=== PATIENT | female | born 1960 | race Caucasian/White ===

== ENCOUNTER 2016-10-16 08:30 | Inpatient (IN) | payer OTHER ==
[~2016-10-16] VITALS: Ht 152.4 cm; Wt 61.2 kg
--- NOTE | 2016-10-16 08:32 | NUR ---
AAOX3, CAME TO ER C/O CHEST PAIN RADIATES TO R ARM AND NECK, ALSO C/O N/V. TOOK SOME GASX AND ANTI-SPASM TO NO RELIEF. SKIN IS WARM AND DRY. RESP IS EVEN AND UNLABORED WITH NAD NOTED. EKG AT BS. AWAITING MD FOR EVAL.
--- NOTE | 2016-10-16 08:40 | NUR ---
AT BEDSIDE FOR EVAL
[2016-10-16] MEDS ORDERED: ONDANSETRON HCL/PF 4 MG/2 ML VIAL ONE (08:43)
[2016-10-16] MEDS ORDERED: IV NS 0.9% 1,000 ML ONE (08:43)
[2016-10-16] MEDS ORDERED: IV SET PRIMARY PUMP SET 1 EA INFUS.SET MC ONE (08:43)
[2016-10-16] MEDS ORDERED: HYDROMORPHONE 1 MG/1 ML DISP.SYRIN ONE (08:43)
--- NOTE | 2016-10-16 08:58 | NUR ---
RAC #18 IV ACCESS BLOOD SAMPLE COLLECTED SENT TO LAB
[2016-10-16 09:00] LABS: BASOPHILS % (AUTO) 0.6 % (0.0-2.0); EOSINOPHILS # (AUTO) 0.2 /CMM (0.0-0.7); EOSINOPHILS % (AUTO) 4.2 % (0.0-6.0); HEMATOCRIT 39 % (33-45); HEMOGLOBIN 13.2 g/dL (11.5-14.8); LYMPHOCYTES # (AUTO) 1.6 /CMM (0.8-4.8); LYMPHOCYTES % (AUTO) 32.8 % (20.0-44.0); MEAN CORPUSCULAR HEMOGLOBIN 30 PG (26.0-33.0); MEAN CORPUSCULAR HGB CONC 34 g/dl (31.0-36.0); MEAN CORPUSCULAR VOLUME 88 fL (82-100); MONOCYTES # (AUTO) 0.5 /CMM (0.1-1.30); MONOCYTES % (AUTO) 10.9 % (2.0-12.0); NEUTROPHILS # (AUTO) 2.5 /CMM (1.8-8.9); NEUTROPHILS % (AUTO) 51.5 % (43.0-81.0); PLATELET COUNT (AUTO) 248 /CMM (150-450); RDW COEFFICIENT OF VARIATION 12.5 (11.5-15.0); RED BLOOD CELL COUNT(AUTO) 4.45 MIL/uL (4.0-5.2); WHITE BLOOD COUNT (AUTO) 4.9 K/uL (4.3-11.0)
[2016-10-16] MEDS ORDERED: IV NS 0.9% 1,000 ML BAG IV ONE (09:00)
[2016-10-16] MEDS ORDERED: HYDROMORPHONE INJ 2 MG/ML DISP.SYRIN IV ONE (09:00)
[2016-10-16] MEDS ORDERED: ONDANSETRON HCL/PF 4 MG/2 ML VIAL IVP ONE (09:00)
[2016-10-16 09:20] LABS: INR 0.96 (0.87-1.13); PROTHROMBIN TIME 10.2 SECS (9.5-12.7)
[2016-10-16 09:29] LABS: ALANINE AMINOTRANSFERASE 43 U/L (12-78); ALKALINE PHOSPHATASE 83 U/L (46-116); ASPARTATE AMINOTRANSFERASE 27 U/L (15-37); BILIRUBIN,DIRECT 0.1 mg/dL (0.0-0.2); BILIRUBIN,TOTAL 0.6 mg/dL (0.2-1.0); CALCIUM, SERUM 9.1 mg/dL (8.5-10.1); CARBON DIOXIDE 28 mmol/L (21-32); CHLORIDE 102 mmol/L (98-107); GFR 57 mL/min (>60); GLUCOSE 159 mg/dL (74-106); LIPASE 221 U/L (73-393); POTASSIUM 3.9 mmol/L (3.5-5.1); SODIUM SERUM 140 mmol/L (136-145); TOTAL PROTEIN, SERUM 7.5 g/dL (6.4-8.2); UREA NITROGEN, BLOOD 14 mg/dL (7-18)
[2016-10-16 09:31] LABS: TROPONIN I < 0.017 ng/mL (0.00-0.056)
--- NOTE | 2016-10-16 10:00 | NUR ---
URINE SAMPLE SENT TO LAB
[2016-10-16 10:10] LABS: APPEARANCE,URINE SL CLOUDY (CLEAR); BILIRUBIN,URINE NEGATIVE (NEGATIVE); BLOOD, URINE NEGATIVE Ery/uL (NEGATIVE); COLOR,URINE YELLOW (YELLOW); KETONES,URINE TRACE (NEGATIVE); LEUKOCYTE ESTERASE ,URINE NEGATIVE (NEGATIVE); NITRITE, URINE NEGATIVE (NEGATIVE); PH,URINE 7.5 (5.0-8.0); PROTEIN,URINE NEGATIVE (NEGATIVE); UGLUCOSE NEGATIVE (NEGATIVE); UROBILINOGEN,URINE 0.2 EU/dL (0.2)
[2016-10-16 10:18] LABS: RBC,URINE NONE SEEN /HPF (0-2)
[2016-10-16 10:19] LABS: ADD URINE CULTURE NO; BACTERIA,URINE Few /HPF (None Seen); HYALINE CASTS, URINE Rare /LPF (None Seen); SQUAMOUS EPITHELIAL CELL,UR Moderate /HPF (None Seen); URINE AMORPHOUS PHOSPHATES Few /HPF (None Seen); WBC,URINE 0-2 /HPF (0-3)
--- NOTE | 2016-10-16 10:26 | NUR ---
[facility] P[facility]ED, DR PEDRO SWEET GOODS MACHINE OPERATOR [phone]
--- NOTE | 2016-10-16 10:41 | NUR ---
CLIENT SERVICES MANAGER AT BEDSIDE FOR EVAL
[2016-10-16] MEDS ORDERED: METOPROLOL TARTRATE INJ 5 MG/5 ML AMPUL ONE (10:44)
[2016-10-16] MEDS ORDERED: ENOXAPARIN SODIUM 60 MG/0.6 ML DISP.SYRIN SQ ONE (10:44)
[2016-10-16] MEDS ORDERED: ASPIRIN 325 MG TABLET ONE (10:44)
[2016-10-16] MEDS ORDERED: ASPIRIN 325 MG TABLET PO SCH (11:00)
[2016-10-16] MEDS ORDERED: ENOXAPARIN SODIUM 60 MG/0.6 ML DISP.SYRIN SQ SCH ×2 (11:00→21:00)
[2016-10-16] MEDS ORDERED: METOPROLOL TARTRATE INJ 5 MG/5 ML AMPUL IVP PRN (11:00)
--- NOTE | 2016-10-16 11:10 | NUR ---
panel paged again, dr johansen telephone service adviser [phone]
--- NOTE | 2016-10-16 11:12 | NUR ---
GAVE REPORT TO JOSE ALBERTO WILKERSON TELEMETRY ROOM [id number]
--- NOTE | 2016-10-16 11:28 | NUR ---
MD WAITE ON PHONE TALKING TO MD KIDD
--- NOTE | 2016-10-16 11:55 | NUR ---
PATIENT TO HAVE CT ANGIO TODAY AT 1500. WILL REMAIN NPO TILL FURTHER ORDER
[2016-10-16 12:00] VITALS: BP 98/64
[2016-10-16] MEDS ORDERED: HYDROCODONE/APAP 5/325MG 1 EACH TABLET PO PRN (12:00)
[2016-10-16] MEDS: METOPROLOL TARTRATE 50 MG TABLET PO SCH ×2 (12:00→18:04)
[2016-10-16] MEDS ORDERED: Z GUARD REMEDY 2 OZ OINT TP PRN (12:00)
[2016-10-16] MEDS ORDERED: ONDANSETRON HCL/PF 4 MG/2 ML VIAL IVP PRN (12:00)
[2016-10-16] MEDS ORDERED: NITROGLYCERIN 0.4 MG/TAB BOTTLE SL PRN (12:00)
[2016-10-16] MEDS ORDERED: MAGNESIUM HYDROXIDE 30 ML UDC PO PRN (12:00)
[2016-10-16] MEDS ORDERED: ACETAMINOPHEN 325 MG TABLET PO PRN (12:00)
[2016-10-16] MEDS ORDERED: ZOLPIDEM TARTRATE 5 MG TABLET PO PRN (12:00)
[2016-10-16] MEDS ORDERED: MAG HYDROX/AL HYDROX/SIMETH 30 ML UDC PO PRN (12:00)
--- NOTE | 2016-10-16 12:00 | NUR ---
patient trasnported to 3w. vss. via acls protocol
--- NOTE | 2016-10-16 12:26 | NUR ---
HEAT REGULATOR ADMITTING NOTES ADMITTED PATIENT FROM ER VIA RNEY ALERT AND ORIENTED X 4. ABLE TO VERBALIZED NEEDS WITH NO COMPLAINTS OF CHEST PAIN ON ADMISSION. PATIENT WITH DIAGNOSIS OF CHEST PAIN THAT RADIATES TO RIGHT ARM AND NECK PRIOR TO ADMISSION TO ER. SHE HAS SIGNIFICANT HX OF PANCREATITIS, CHOLECYSTECTOMY AND IRRITABLE BOWEL SYNDROME. NO KNOWN ALLERGY. PATIENT IS AMBULATORY. ON SUPPLEMENTAL 02 VIA N/C @ 2LPM, NO RESPIRATORY DISTRESS NOTED. PLACED ON TELE-MONITORING WITH NORMAL SINUS RHYTHM AND HR OF 78. ROUTINE ADMISSION ASSESSMENT DONE. SKIN IS INTACT. IV ACCESS ON RIGHT AC G #[address] AND PATENT. V/S CHECKED; BP 98/64, HR 63 R 19 T 97.7F AND [address] HANDY ON UNIT AND SEEN AND EVALUATED PATIENT. PATIENT IS HAVING N & vMD ORDERED STAT PROTONIX 40MG IV. ALSO TO CONTINUE ASPIRIN 325MG DAILY. PATIENT IS SCHEDULED FOR CT CARDIAC ANGIOGRAM THIS AFTERNOON, NPO ENFORCED. WILL CONTINUE TO ASSESS AND MONITOR PATIENT ACCORDINGLY.
[2016-10-16] MEDS: ATORVASTATIN 10 MG TABLET PO SCH (12:44)
--- NOTE | 2016-10-16 12:50 | NUR ---
RN NOTES PATIENT APPARENTLY DIDN'T GET ANY PNEUMO AND FLU VACCINES IN HER LIFE FAR SHE REMEMBER. GIVEN HEALTH TEACHINGS ABOUT GETTING THE VACCINES BUT SHE REFUSED BECAUSE SHE FEARS OF ANY ADVERSE EFFECTS.WILL CONTINUE TO MONITOR.
[2016-10-16] MEDS ORDERED: PANTOPRAZOLE 40 MG VIAL IV ONE (13:00)
--- NOTE | 2016-10-16 13:37 | NUR ---
RN NOTES RECEIVED CALL FROM LABORATORY THAT PATIENT'S TROPONIN LEVEL WENT -UP FRO Addendum: 10/16/16 at 1342 by JUAN ARCOS RN CONTINUATION : FROM 0.[address] HANDY AND LEFT MESSAGE. CALLED DR SANTAMARIA [facility] AND SPOKE TO [place] AND RELAYED MESSAGE TO DR SANTAMARIA AND SAID THAT HE WILL CALL UNIT. WILL FOLLOW-UP. PATIENT ALERT AND ORIENTED X 4 WITH NO COMPLAINTS OF CHEST PAIN OR DISCOMFORTS AT THIS TIME.
--- NOTE | 2016-10-16 14:30 | NUR ---
RN NOTES RADIOLOGIST CAME TO UNIT AND INFORMED THAT CT CARDIAC ANGIOGRAM CANNOT BE DONE THIS AFTERNOON. PATIENT AND FAMILY GOT UPSET. RADIOLOGIST EXPLAINED THAT IT'S HARD TO FIND NURSE OR STAFF TO ASSIST HIM IT'S MONDAY. CHARGE NURSE MADE AWARE AND SPOKE TO RADIOLOGIST THROUGH THE PHONE. RADIOLOGIST RE-SCHEDULED APPOINMENT TOMORROW @ 10AM. PATIENT MADE AWARE OF DIAGNOSTIC EXAM TOMORROW AND WILL IMPLEMENT NPO AFTER MIDNIGHT. WILL ENDORSED TO NEXT SHIFT.
--- NOTE | 2016-10-16 15:25 | NUR ---
PT REFUSING CT SCAN, RN IS AWARE.
[2016-10-16 16:00] VITALS: BP 93/65
--- NOTE | 2016-10-16 18:03 | NUR ---
MAE FRENCH REYNALDO & EWA ARE AWARE THAT THE PATIENT REFUSED HEART CT SCAN.
--- NOTE | 2016-10-16 18:19 | NUR ---
PATIENT WOULD LIKE TO DO HEART CT SCAN LATER ON THIS WEEK AN OUT PATIENT.
--- NOTE | 2016-10-16 18:20 | NUR ---
RN NOTES RECEIVED CALL FROM [facility] INFORMING THAT PATIENT'S LATEST RESULTS OF TROPONIN IS 3.597. DR HANDY MADE AWARE IMMEDIATELY WITH ORDER TO DO TROPONIN LEVEL Q 6HRS AND TO GIVE MORPHINE SULFATE 2MG IV PRN Q 4HRS FOR PAIN. PATIENT APPEARS COMFORTABLE WITH NO VERBALIZATION OF PAIN. WILL CONTINUE TO MONITOR CLOSELY.
[2016-10-16] MEDS ORDERED: MORPHINE SULFATE INJ 2 MG/ML DISP.SYRIN IV PRN (19:00)
--- NOTE | 2016-10-16 19:17 | NUR ---
RACECOURSE BARRIER ATTENDANT CLOSING NOTES PATIENT IN BED AWAKE AND ORIENTED X4, NO COMPLAINTS OF CHEST PAIN VOICED SINCE ADMISSION. FAMILY AND FRIENDS VISITED. ON 02 @ 2LPM VIA N/C, NO SIGNS OF RESPIRATORY DISTRESS NOTED. CALL LIGHT WITHIN REACH. NEEDS ATTENDED WELL. FOR CT CARDIAC ANGIOGRAPHY TOMORROW PER CHARGE NURSE. PATIENT AWARE, NPO POST MIDNIGHT. ENDORSED TO ATTENDANT LODGING FACILITIES RN TO CONTINUE MONITOR PATIENT.
[2016-10-16 20:00] VITALS: BP_SYST 100; BP_SYST 111; BP_DIAS 66; BP_DIAS 68
--- NOTE | 2016-10-16 20:00 | NUR ---
TELE/RN NOTES RECEIVED PATIENT ALERT, ORIENTED X4. ABLE TO VERBALIZE NEEDS. WITH ELEVATED TROPONIN LEVEL AND FAMILY /PATIENT WAS INFORMED ABOUT PROCEDURE ASHLEY AM /NPO AT MIDNIGHT. CALL LIGHTS WITHIN REACH. NO PAIN VERBALIZED. WILL CONTINUE PLAN OF CARE AND REPORT ANY CHANGE OF CONDITONS.
[2016-10-17] VITALS: BP 111/68
[2016-10-17] MEDS ORDERED: ZOLPIDEM TARTRATE 5 MG TABLET ONE (00:28)
--- NOTE | 2016-10-17 03:41 | NUR ---
TELE/RN NOTES PATIENT ON TELE READING SR 70. PATIENT REQUESYED TO KEEP NOISE CONTROL AND PREFER TO HAVE BLOOD TEST IN AM. MD SENIOR RESIDENT CARE DIRECTOR SPOKE WITH PATIENT AND FAMILY MEMBER REGARDING MD/CARDI[facility]. PATIENT /FAMILY AGREED FOR THE PLAN AND ON NPO WILL GIVE REPORT TO AM RN OF THE [facility] AND PREPARE EXIT CARE.
[2016-10-17 06:00] VITALS: BP 97/57
[2016-10-17] MEDS: METOPROLOL TARTRATE 50 MG TABLET PO SCH ×2 (06:00)
--- NOTE | 2016-10-17 06:22 | NUR ---
TELE/RN CLOSING NOTES PATIENT IN BED ABLE TO SLEEP DURING THE NIGHT BY KEEPING DOOR CLOSE, PATIENT REQUEST AND GAVE NEEDED SLEEPING PILL. NO S/S OF SOB OR DISTRESS. TELE READING AT SR 70'S. CALL LIGHTS WITHIN REACH AND WILL ENDORSE TO AM RN YODIT.
[2016-10-17 07:16] LABS: ALBUMIN 3.2 g/dL (3.4-5.0); BILIRUBIN,TOTAL 0.5 mg/dL (0.2-1.0); CALCIUM, SERUM 8.5 mg/dL (8.5-10.1); CREATININE 0.9 mg/dL (0.6-1.3); MAGNESIUM 1.8 mg/dL (1.8-2.4); PHOSPHORUS 2.9 mg/dL (2.5-4.9); TOTAL PROTEIN, SERUM 6.4 g/dL (6.4-8.2)
[2016-10-17 07:19] LABS: POTASSIUM 3.4 mmol/L (3.5-5.1)
[2016-10-17] MEDS ORDERED: PANTOPRAZOLE 40 MG TABLET.DR PO SCH (07:30)
--- NOTE | 2016-10-17 07:30 | NUR ---
BEAUTY SHOP MANAGER NOTES PT IN BED, AWAKE, ALERT AND ORIENTED, NO COMPLAINT OF PAIN OR ANY DISCOMFORT, BREATHING PATTERN NORMAL AND NOT LABORED, CALL LIGHT WITHIN REACH, PT INFORMED OF PLAN OF CARE, PT FOR TRANSFER TO [facility] FOR CARDIAC CATH, VERBALIZED UNDERSTANDING.
[2016-10-17 07:31] LABS: BASOPHILS % (AUTO) 0.5 % (0.0-2.0); EOSINOPHILS # (AUTO) 0.1 /CMM (0.0-0.7); EOSINOPHILS % (AUTO) 1.5 % (0.0-6.0); HEMATOCRIT 35 % (33-45); HEMOGLOBIN 11.9 g/dL (11.5-14.8); LYMPHOCYTES % (AUTO) 26.1 % (20.0-44.0); MEAN CORPUSCULAR HEMOGLOBIN 30 PG (26.0-33.0); MEAN CORPUSCULAR HGB CONC 34 g/dl (31.0-36.0); MEAN CORPUSCULAR VOLUME 89 fL (82-100); MONOCYTES # (AUTO) 0.5 /CMM (0.1-1.30); MONOCYTES % (AUTO) 6.9 % (2.0-12.0); PLATELET COUNT (AUTO) 227 /CMM (150-450); RDW COEFFICIENT OF VARIATION 12.8 (11.5-15.0); RED BLOOD CELL COUNT(AUTO) 3.96 MIL/uL (4.0-5.2); WHITE BLOOD COUNT (AUTO) 7.7 K/uL (4.3-11.0)
[2016-10-17 08:00] VITALS: BP 97/57
[2016-10-17 08:07] LABS: THYROID STIMULATING HORMONE 1.541 uIU/mL (0.358-3.74)
[2016-10-17] MEDS ORDERED: POTASSIUM CL. PREMIX PERIPHER. 50 ML IV SCH (08:36)
[2016-10-17] MEDS ORDERED: IV D5/ 0.9% NACL 1,000 ML IV PRN (08:36)
[2016-10-17] MEDS ORDERED: PANTOPRAZOLE 40 MG VIAL IV SCH (09:00)
[2016-10-17] MEDS: ATORVASTATIN 10 MG TABLET PO SCH (09:00)
[2016-10-17] MEDS: ASPIRIN 325 MG TABLET PO SCH ×2 (09:00→10:47)
[2016-10-17] MEDS ORDERED: ATOR10TA PO (10:33)
[2016-10-17] MEDS ORDERED: Nitroglycerin SL (10:33)
[2016-10-17] MEDS ORDERED: Aspirin PO (10:33)
[2016-10-17] MEDS ORDERED: METO50TA3 PO (10:33)
[2016-10-17 11:00] VITALS: BP 108/68
[2016-10-17] MEDS ORDERED: POTASSIUM CHLORIDE 20 MEQ TAB.PRT.SR PO ONE (11:00)
--- NOTE | 2016-10-17 11:30 | NUR ---
SEEDLING SORTER NOTES PT IN BED, AWAKE, NOT IN PAIN OR DISTRESS, PT SEEN BY DR. SANTAMARIA AND DR. PABON, PLAN OF CARE DISCUSSED WITH PT, DISCHARGE ORDER RECEIVED FROM MD, DISCHARGE AND MEDICATION INSTRUCTIONS PROVIDED TO PT, VERBALIZED UNDERSTANDING, BELONGINGS ACCOUNTED FOR, PICKED UP BY 2 AMBULANCE PERSONNEL, LEFT VIA GUERNEY IN STABLE CONDITION.
== END 2016-10-17 16:00 | disposition short-term general hospital (02) | DRG 282 ==
LOC: ER 08:31 → TELE 10:17
PROVIDERS: ADMIT Student in an Organized Health Care Education/Training Program; ATTEND Student in an Organized Health Care Education/Training Program
DX: I21.4 Non-ST elevation (NSTEMI) myocardial infarction (principal); K58.9 Irritable bowel syndrome, unspecified; E87.6 Hypokalemia
CPT/HCPCS: 36415; 71010-TC; 80048-TC; 80053-TC; 80061-TC; 80076-TC; 81000-TC; 83690-TC; 83735-TC; 84100-TC; 84443-TC; 84484-TC; 85025-TC; 85730-TC; 93307-TC; A4606; C9113; J1170; J1650; J2405; J3490; J7030; Z7610

== ENCOUNTER 2021-11-01 17:58 | Inpatient (IN) | payer OTHER ==
[~2021-11-01] VITALS: Ht 157.5 cm; Wt 55.3 kg
[~2021-11-01 17:58] MED LIST: ATOR10TA PO; Aspirin PO; METO50TA16 PO; Nitroglycerin SL
--- NOTE | 2021-11-01 18:10 | NUR ---
PT BIB SELF C/O VOMITING X4 TODAY & BURNING SENSATION ON CHEST WITH LT UPPER BACK PAIN. PT VOMITED X1 IN ER. DR. STOKES AWARE.
--- NOTE | 2021-11-01 18:39 | NUR ---
ekg done at bedside.
--- NOTE | 2021-11-01 18:45 | NUR ---
EKG DONE AT BEDSIDE, ATTACHED PATIENT TO CURRICULUM AND INSTRUCTION DIRECTOR
--- NOTE | 2021-11-01 18:50 | NUR ---
IV CANNULA G20 INSERTED ON RIGHT AC. BLOOD DRAWN AND SENT TO LAB
[2021-11-01] MEDS ORDERED: METF-440 PO (18:54)
[2021-11-01] MEDS ORDERED: ASPI-1169 PO (18:54)
[2021-11-01] MEDS ORDERED: ROSU10TA29 PO (18:54)
[2021-11-01] MEDS ORDERED: BUPR75TA8 PO (18:54)
[2021-11-01] MEDS ORDERED: ONDANSETRON HCL/PF 4 MG/2 ML VIAL IVP ONE (19:00)
[2021-11-01] MEDS ORDERED: IV NS 0.9% 1,000 ML BAG IV ONE (19:00)
[2021-11-01] MEDS ORDERED: ONDANSETRON HCL/PF 4 MG/2 ML VIAL ONE ×2 (19:03→19:08)
--- NOTE | 2021-11-01 19:11 | NUR ---
COVID SWAB DONE AND SENT TO LAB
[2021-11-01 19:13] LABS: CALCIUM, SERUM 9.5 mg/dL (8.5-10.1); CARBON DIOXIDE 30 mmol/L (21-32); CHLORIDE 100 mmol/L (98-107); CREATININE 0.8 mg/dL (0.6-1.3); GLUCOSE 111 mg/dL (74-106); POTASSIUM 4.2 mmol/L (3.5-5.1); SODIUM SERUM 138 mmol/L (136-145); UREA NITROGEN, BLOOD 18 mg/dL (7-18)
[2021-11-01 19:20] LABS: ALANINE AMINOTRANSFERASE 40 U/L (12-78); ALBUMIN 4.2 g/dL (3.4-5.0); ALKALINE PHOSPHATASE 64 U/L (46-116); ASPARTATE AMINOTRANSFERASE 33 U/L (15-37); BILIRUBIN,DIRECT 0.1 mg/dL (0.0-0.2); BILIRUBIN,TOTAL 0.3 mg/dL (0.2-1.0); LIPASE 218 U/L (73-393); TOTAL PROTEIN, SERUM 8.3 g/dL (6.4-8.2)
[2021-11-01 20:06] LABS: BASOPHILS % (AUTO) 0.4 % (0.0-2.0); EOSINOPHILS % (AUTO) 1.8 % (0.0-6.0); HEMATOCRIT 39 % (33-45); HEMOGLOBIN 13.3 g/dL (11.5-14.8); LYMPHOCYTES # (AUTO) 1.3 K/uL (0.8-4.8); LYMPHOCYTES % (AUTO) 12.6 % (20.0-44.0); MEAN CORPUSCULAR HGB CONC 34 g/dl (31.0-36.0); MEAN CORPUSCULAR VOLUME 89 fL (82-100); MONOCYTES # (AUTO) 0.6 K/uL (0.1-1.30); MONOCYTES % (AUTO) 5.4 % (2.0-12.0); NEUTROPHILS # (AUTO) 8.4 K/uL (1.8-8.9); NEUTROPHILS % (AUTO) 79.8 % (43.0-81.0); PLATELET COUNT (AUTO) 279 K/uL (150-450); RED BLOOD CELL COUNT(AUTO) 4.41 MIL/uL (4.0-5.2); WHITE BLOOD COUNT (AUTO) 10.5 K/uL (4.3-11.0)
--- NOTE | 2021-11-01 21:13 | NUR ---
ASSIGNED TO 309-1
[2021-11-01 21:35] VITALS: BP 122/66
--- NOTE | 2021-11-01 21:38 | NUR ---
REPORT GIVEN TO JOSE ALBERTO DE LEÓN
--- NOTE | 2021-11-01 21:43 | NUR ---
TRANSFERRED PATIENT TO ROOM WITH POLITICAL RESEARCHER. ENDORSE PATIENT TO JOSE ALBERTO RIZO.
--- NOTE | 2021-11-01 21:45 | NUR ---
TELE/CIVIL ENGINEERING INTERN NOTE RECEIVED PT FROM E.RHerson VIA CHARLENE TO RM.309-1 ACCOMPANIED BY RN/STAFF. PT AWAKE, A/OX4, ABLE TO MAKE ALL NEEDS KNOWN. ON ROOM AIR AND BRIGITTE WELL. RESPIRATIONS EVEN/UNLABORED. PT AMBULATORY WITH STEADY GAIT. SHE DENIES PAIN/CHEST PAIN, DENIES NAUSEA AT THIS TIME. IV SITE: R-AC #20G INTACT/PATENT/FLUSHES WELL. SKIN INTACT. PROVIDED ORIENTATION TO UNIT, STAFF, SAFETY AND HEALTH TEACHINGS. PT VERBALIZED UNDERSTANDING. SAFETY MEASURES IN PLACE. WILL CONT TO MONITOR.
--- NOTE | 2021-11-01 21:46 | NUR ---
CONNECTED TO TELE MONITOR, READING SR, HR 71.
[2021-11-01] MEDS ORDERED: ATORVASTATIN 10 MG TABLET PO SCH (22:00)
[2021-11-01] MEDS ORDERED: ENOXAPARIN SODIUM 40 MG/0.4 ML DISP.SYRIN SQ SCH (22:00)
[2021-11-01] MEDS ORDERED: ACETAMINOPHEN 325 MG TABLET PO PRN (22:00)
[2021-11-01] MEDS ORDERED: ONDANSETRON HCL/PF 4 MG/2 ML VIAL IVP PRN (22:00)
[2021-11-01] MEDS ORDERED: Z GUARD REMEDY 4 OZ OINT TP PRN (22:00)
[2021-11-01 22:17] VITALS: BP 122/66
[2021-11-02] VITALS: BP 106/59
[2021-11-02 03:37] LABS: BASOPHILS % (AUTO) 0.6 % (0.0-2.0); EOSINOPHILS % (AUTO) 3.6 % (0.0-6.0); HEMATOCRIT 37 % (33-45); HEMOGLOBIN 12.2 g/dL (11.5-14.8); LYMPHOCYTES # (AUTO) 1.9 K/uL (0.8-4.8); LYMPHOCYTES % (AUTO) 25.5 % (20.0-44.0); MEAN CORPUSCULAR HGB CONC 34 g/dl (31.0-36.0); MEAN CORPUSCULAR VOLUME 89 fL (82-100); MONOCYTES # (AUTO) 0.5 K/uL (0.1-1.30); MONOCYTES % (AUTO) 7.4 % (2.0-12.0); NEUTROPHILS # (AUTO) 4.6 K/uL (1.8-8.9); NEUTROPHILS % (AUTO) 62.9 % (43.0-81.0); PLATELET COUNT (AUTO) 252 K/uL (150-450); RED BLOOD CELL COUNT(AUTO) 4.11 MIL/uL (4.0-5.2); WHITE BLOOD COUNT (AUTO) 7.4 K/uL (4.3-11.0)
[2021-11-02 04:00] VITALS: BP 100/60
[2021-11-02 04:02] LABS: ALBUMIN 3.5 g/dL (3.4-5.0); BILIRUBIN,TOTAL 0.4 mg/dL (0.2-1.0); CALCIUM, SERUM 8.7 mg/dL (8.5-10.1); CREATININE 0.8 mg/dL (0.6-1.3); MAGNESIUM 2.3 mg/dL (1.8-2.4); PHOSPHORUS 4.1 mg/dL (2.5-4.9); POTASSIUM 3.8 mmol/L (3.5-5.1); TOTAL PROTEIN, SERUM 6.9 g/dL (6.4-8.2)
[2021-11-02 04:16] LABS: THYROID STIMULATING HORMONE 1.613 uIU/mL (0.358-3.74)
--- NOTE | 2021-11-02 07:00 | NUR ---
RN NOTE PT AWAKE IN BED, IN NO DISTRESS. DENIES ANY CHEST PAIN. DENIES NAUSEA, DENIES SOB. RESPIRATIONS EVEN/UNLABORED. NO ACUTE EVENTS DURING THE NIGHT. ALL NEEDS ATTENDED TO.
[2021-11-02] MEDS ORDERED: PANTOPRAZOLE 40 MG TABLET.DR PO SCH (07:30)
--- NOTE | 2021-11-02 07:35 | NUR ---
MAINTENANCE MILLWRIGHT OPENING NOTES RECEIVED PATIENT AWAKE IN BED, A/OX4. ON RA WITH NO S/SX OF RESPIRATORY DISTRESS NOTED. NO CHEST PAIN EXPRESSED AT THIS TIME. NO C/O N/V. ON TRAINMAN READING SR. RAC G#20 INTACT AND PATENT. PATIENT IS AWARE OF PLAN FOR THE DAY AND VERBALIZES UNDERSTANDING. SAFETY MEASURES IN PLACE: BED IN LOWEST POSITION, WHEELS LOCKED, SIDE RAILS UP X2, CALL LIGHT WITHIN REACH. WILL CONTINUE PLAN OF CARE
[2021-11-02 08:00] VITALS: BP 98/57
[2021-11-02] MEDS ORDERED: METFORMIN 500 MG TABLET PO SCH (08:00)
[2021-11-02] MEDS ORDERED: ASPIRIN 81 MG TAB.CHEW PO SCH (09:00)
[2021-11-02] MEDS ORDERED: buPROPion 75 MG TABLET PO SCH (09:00)
[2021-11-02] MEDS ORDERED: NITROGLYCERIN 0.4 MG/TAB BOTTLE ONE (10:44)
[2021-11-02] MEDS ORDERED: IOHEXOL-350 100 ML VIAL IV ONE (10:44)
[2021-11-02] MEDS ORDERED: METOPROLOL TARTRATE INJ 5 MG/5 ML AMPUL ONE ×2 (10:45→11:28)
[2021-11-02] MEDS ORDERED: CT SWABBABLE VALVE TRANS SET 1 EA INFUS.SET MC ONE (10:45)
[2021-11-02] MEDS ORDERED: IV NS 0.9% 250 ML IV ONE (10:45)
[2021-11-02] MEDS: METOPROLOL TARTRATE INJ 5 MG/5 ML AMPUL IVP PRN ×3 (11:00→11:10)
[2021-11-02] MEDS ORDERED: IV NS 0.9% 500 ML IV PRN (11:30)
--- NOTE | 2021-11-02 11:30 | NUR ---
RN NOTES PATIENT UNDERWENT CTCA EXAM. PATIENT IN STABLE CONDITION WITH NO COMPLICATIONS NOTED. WILL CONTINUE TO MONITOR
[2021-11-02 12:00] VITALS: BP 100/65
[2021-11-02 15:59] VITALS: BP 105/69
--- NOTE | 2021-11-02 16:40 | NUR ---
DEAN OF FACULTY NOTES PATIENT MEDICALLY STABLE FOR DISCHARGE. VSS. DISCHARGE INSTRUCTIONS PROVIDED, PATIENT WAS ABLE TO VERBALIZE UNDERSTANDING. EXIT CARE PACKET PROVIDED. ALL BELONGINGS ACCOUNTED FOR AND DOCUMENTS SIGNED. IV ACCESS AND ID BAND REMOVED. PATIENT LEFT FACILITY IN PRIVATE CARE ACCOMPANIED BY SON.
== END 2021-11-02 17:00 | disposition home or self-care (01) | DRG 303 ==
LOC: ER 17:58 → TELE 21:16
PROVIDERS: ADMIT Nurse Practitioner Acute Care; ATTEND Student in an Organized Health Care Education/Training Program
DX: I25.10 Atherosclerotic heart disease of native coronary artery without angina pectoris (principal); E78.5 Hyperlipidemia, unspecified; I10 Essential (primary) hypertension; E11.9 Type 2 diabetes mellitus without complications; Z79.82 Long term (current) use of aspirin; Z90.49 Acquired absence of other specified parts of digestive tract; Z95.5 Presence of coronary angioplasty implant and graft; Z79.84 Long term (current) use of oral hypoglycemic drugs; Z20.822 Contact with and (suspected) exposure to COVID-19
CPT/HCPCS: 36415; 71045-TC; 75574; 76705-TC; 80048-TC; 80053-TC; 80061-TC; 80076-TC; 83690-TC; 83735-TC; 84100-TC; 84443-TC; 84484-TC; 85025-TC; 87081-TC; C9803; G0378; J1650; J2405; J3490; J7050; Q9967